=== PATIENT | female | born 1975 | race Caucasian/White ===

== ENCOUNTER 2017-09-14 20:58 | Emergency (ER) | payer BC ==
--- NOTE | 2017-09-14 22:05 | NUR ---
CALLED FROM [facility]; NO ANSWER
--- NOTE | 2017-09-14 22:45 | NUR ---
CALLED FOR TRIAGE X4; NOT IN [facility] OR OUTSIDE
== END 2017-09-14 22:47 | disposition left against medical advice (07) ==
LOC: ER 21:04
DX: Z53.21 Procedure and treatment not carried out due to patient leaving prior to being seen by health care provider (principal)